=== PATIENT | female | born 1970 | race Caucasian/White ===

== ENCOUNTER → 2018-10-14 | Outpatient (CLI) | payer OTHER ==
[~2018-10-14] MED LIST: ACE500 PO; ALB0.5 INH; ALP25 PO; CIP500 PO; DOXY150C4 PO; HYDR473S4 PO; IBU600 PO; NORE-23 PO; TRAZ-133 PO; ZOLP-350 PO
--- NOTE | 2018-10-14 16:54 | RADIOLOGY IMAGING REPORT ---
FACILITY: [facility] [place] PATIENT NAME: CB DOZIER : [id number] MR: [id number] V: [id number] EXAM DATE: [id number] ORDERING PHYSICIAN: FARHAN WYLIE TECHNOLOGIST: Sharon Wong PROCEDURE: BILATERAL DIGITAL SCREENING MAMMOGRAM WITH CAD ASSISTED INTERPRETATION & 3D TOMOSYNTHESIS. REASON FOR STUDY: Screening. FAMILY HISTORY OF BREAST CANCER: None. BREAST PROCEDURES/TREATMENTS: None. COMPARISON: 03/24/13. VIEWS OBTAINED: Bilateral 2D & 3D full field CC & MLO projections. BREAST DENSITY: The breasts are heterogeneously dense which can obscure small masses. MAMMOGRAM FINDINGS: The parenchymal pattern has remained stable allowing for difference in mammographic technique & patient positioning. There is a Right nipple ring in place. By history the patient cannot remove it. IMPRESSION: BIRADS 1: Negative. DIAGNOSTIC CATEGORY 1--NEGATIVE. RECOMMENDATIONS: ROUTINE MAMMOGRAM AND CLINICAL EVALUATION. Dictated by: Margo Rain M.D. on 10/14/2018 at 9:52 Transcribed by: FIX on 10/14/2018 at 10:08 Approved by: Margo Rain M.D. on 10/14/2018 at 16:51 [facility]
== END ==
LOC: MAMO 00:47
PROVIDERS: ATTEND Family Medicine
DX: Z12.31 Encounter for screening mammogram for malignant neoplasm of breast (principal)
CPT/HCPCS: 77063; 77067